=== PATIENT | male | born 1975 | race Caucasian/White ===

== ENCOUNTER 2024-12-13 10:18 | Emergency (ER) | payer OTHER ==
[2024-12-13] MEDS ORDERED: Sodium Chloride 0.9% 10 ML Syringe FLUSH PRN (10:41)
[2024-12-13 12:05] VITALS: BP 145/85; PULSE 63
== END 2024-12-13 11:45 | disposition home or self-care (01) ==
LOC: LB.ED 10:18
DX: S49.92XA Unspecified injury of left shoulder and upper arm, initial encounter (principal); E11.9 Type 2 diabetes mellitus without complications; E66.9 Obesity, unspecified; Z86.16 Personal history of COVID-19; Z87.891 Personal history of nicotine dependence; Y93.19 Activity, other involving water and watercraft; Z68.38 Body mass index [BMI] 38.0-38.9, adult; X50.9XXA Other and unspecified overexertion or strenuous movements or postures, initial encounter
CPT/HCPCS: 96374; 99283; 99283-25; A9270-GY; J2270